=== PATIENT | female | born 1990 | race Caucasian/White ===

== ENCOUNTER 2019-07-10 15:54 | Emergency (ER) | payer MEDICAID ==
[~2019-07-10] VITALS: Ht 165.1 cm; Wt 64.4 kg
[2019-07-10 16:06] VITALS: Ht 165.1 cm; Wt 64.4 kg
[2019-07-10 17:22] VITALS: BP 128/71
== END 2019-07-10 17:22 | disposition home or self-care (01) ==
LOC: ED 15:54
DX: J03.90 Acute tonsillitis, unspecified (principal); Z88.6 Allergy status to analgesic agent
CPT/HCPCS: 99406; J0696; J7512